=== PATIENT | male | born 1960 | race Caucasian/White ===

== ENCOUNTER 2022-07-16 09:35 | Outpatient (CLI) | payer BC ==
[2022-07-16] VITALS (18 sets, daily range): BP systolic 121–154; BP diastolic 79–106
== END 2022-07-16 23:59 | disposition home or self-care (01) ==
LOC: CARD DIAG 09:35
PROVIDERS: ATTEND Student in an Organized Health Care Education/Training Program
DX: R42 Dizziness and giddiness (principal)
CPT/HCPCS: 93660